=== PATIENT | female | born 1980 | race Caucasian/White ===

== ENCOUNTER 2017-01-03 06:43 | Day surgery (SDC) | payer BC ==
[~2017-01-03 06:43] MED LIST: Sodium Chloride 0.9% 10 ML Syringe FLUSH PRN; Sodium Chloride 0.9% 2.5 ML Syringe FLUSH PRN
[2017-01-03] MEDS ORDERED: Propofol 200 MG/20 ML SDV ONE (07:12)
[2017-01-03] MEDS ORDERED: Dexamethasone 4 MG/ML 5 ML MDV ONE (07:13)
[2017-01-03] MEDS ORDERED: Ketorolac 30 MG/ML SDV ONE (07:13)
[2017-01-03] MEDS ORDERED: Ondansetron 4 MG/2 ML SDV ONE (07:13)
[2017-01-03] MEDS ORDERED: fentaNYL 100 MCG/2 ML SDV ONE ×2 (07:13→07:23)
[2017-01-03] MEDS ORDERED: Midazolam 1 MG/ML 2 ML SDV ONE (07:13)
[2017-01-03] MEDS ORDERED: Lactated Ringers 1,000 ML IV SCH (07:15)
--- NOTE | 2017-01-03 07:27 | PCM.PREANE ---
Preanesthetic Assessment - Anesthesia/Transfusion/Family Hx Anesthesia History: Prior Anesthesia Without Reaction Family History of Anesthesia Reaction: No Transfusion History: No Prior Transfusion(s) - Review of Systems General: No Symptoms Pulmonary: No Symptoms Cardiovascular: No Symptoms Gastrointestinal: No Symptoms Neurological: No Symptoms Other: Reports: None - Physical Assessment NPO Status Date: 01/02/17 Height: 1.65 m Weight: 72.575 kg ASA Class: 1 Mental Status: Alert & Oriented x3 Airway Class: Mallampati = 1 Dentition: Reports: Normal Dentition ROM/Head Extension: Full Lungs: Clear to Auscultation, Normal Respiratory Effort Cardiovascular: Regular Rate, Regular Rhythm - Allergies Allergies/Adverse Reactions: Allergies Allergy/AdvReac Type Severity Reaction Status Date / Time No Known Allergies Allergy Verified 12/27/16 13:42 - Anesthesia Plan Pre-Op Medication Ordered: None - Acknowledgements Anesthesia Type Planned: General Anesthesia Pt an Appropriate Candidate for the Planned Anesthesia: Yes Alternatives and Risks of Anesthesia Discussed w Pt/Guardian: Yes Pt/Guardian Understands and Agrees with Anesthesia Plan: Yes PreAnesthesia Questionnaire Genitourinary History: Reports: None Psychiatric History: Reports: Anxiety - Past Surgical History Head Surgeries/Procedures: Reports: None HEENT Surgical History: Reports: Oral Surgery Other HEENT Surgeries/Procedures: wisdom teeth - SUBSTANCE USE Smoking Status *Q: Never Smoker Recreational Drug Use History: No - HOME MEDS Home Medications: Home Meds Escitalopram Oxalate [Lexapro] 20 mg PO DAILY 12/27/16 [History] - CURRENT (IN HOUSE) MEDS Current Meds: Current Medications Lactated Ringer's (Ringers, Lactated) 1,000 mls @ 100 mls/hr IV ASDIRECTED [place]UGUSTO Sodium Chloride (Saline Flush) 10 ml FLUSH ASDIRECTED PRN PRN Reason: Keep Vein Open Sodium Chloride (Saline Flush) 2.5 ml FLUSH ASDIRECTED PRN PRN Reason: Keep Vein Open Discontinued Medications Dexamethasone (Dexamethasone) Confirm Administered Dose 20 mg .ROUTE .STK-MED ONE Stop: 01/03/17 07:14 Fentanyl (Sublimaze) Confirm Administered Dose 100 mcg .ROUTE .STK-MED ONE Stop: 01/03/17 07:14 Fentanyl (Sublimaze) Confirm Administered Dose 100 mcg .ROUTE .STK-MED ONE Stop: 01/03/17 07:24 Ketorolac Tromethamine (Toradol) Confirm Administered Dose 30 mg .ROUTE .STK- MED ONE Stop: 01/03/17 07:14 Lidocaine HCl (Xylocaine-Mpf 1%) Confirm Administered Dose 5 ml .ROUTE .STK-MED ONE Stop: 01/03/17 07:14 Midazolam HCl (Versed 1 Mg/Ml) Confirm Administered Dose 2 mg .ROUTE .STK-MED ONE Stop: 01/03/17 07:14 Ondansetron HCl (Zofran) Confirm Administered Dose 4 mg .ROUTE .STK-MED ONE Stop: 01/03/17 07:14 Propofol (Diprivan 20 Ml) Confirm Administered Dose 200 mg .ROUTE .STK-MED ONE Stop: 01/03/17 07:13
--- NOTE | 2017-01-03 08:41 | PCM.OPNOTE ---
- General Post-Op/Procedure Note Date of Surgery/Procedure: 01/03/17 Operative Procedure(s): Diagnostic hysteroscopy/D&C/thermal endometrial ablation Findings: 8 cm uterine cavity, no intracavitary lesions Pre Op Diagnosis: menorrhagia Post-Op Diagnosis: Same Anesthesia Technique: General LMA Primary Surgeon: Lindsay Bruno Pathology: endometrial curretings. Fluid Replacement, Intraop: 900 (fluid deficit 240 mL NS) EBL in mLs: 10 Condition: Good Free Text/Narrative:: Dictation [id number]
[2017-01-03] MEDS: fentaNYL 100 MCG/2 ML SDV IVPUSH PRN ×2 (09:02→09:09)
--- NOTE | 2017-01-03 10:12 | PCM.POSTAN ---
POST ANESTHESIA ASSESSMENT - MENTAL STATUS Mental Status: Alert, Oriented - RESPIRATORY Respiratory Status: Respiratory Rate WNL, Airway Patent, O2 Saturation Stable - CARDIOVASCULAR CV Status: Pulse Rate WNL, Blood Pressure Stable - GASTROINTESTINAL GI Status: No Symptoms - POST OP HYDRATION Hydration Status: Adequate & Stable
--- NOTE | 2017-01-03 10:12 | PCM48HPAN ---
Post Anesthesia Note - EVALUATION WITHIN 48HRS OF ANESTHETIC Vital Signs in Normal Range: Yes Patient Participated in Evaluation: Yes Respiratory Function Stable: Yes Airway Patent: Yes Cardiovascular Function Stable: Yes Hydration Status Stable: Yes Pain Control Satisfactory: Yes Nausea and Vomiting Control Satisfactory: Yes Mental Status Recovered: Yes
[2017-01-03 12:13] VITALS: BP 111/73
--- NOTE | 2017-01-03 15:59 | OR ---
SURGEON: Lindsay Bruno M.D. DATE OF PROCEDURE: 01/03/2017 PREOPERATIVE DIAGNOSIS: Menorrhagia. POSTOPERATIVE DIAGNOSIS: Menorrhagia. PROCEDURE PERFORMED: Diagnostic hysteroscopy, D and C with thermal endometrial ablation. ANESTHESIA: General LMA. ESTIMATED BLOOD LOSS: 10 mL. FLUIDS: 900 mL crystalloid. Fluid deficit, 240 mL of normal saline from hysteroscopy. COMPLICATION: None. FINDINGS: 8 cm uterine cavity. No intracavitary lesions noted. DISPOSITION: The patient to PACU, stable. SPECIMENS: To pathology. INDICATION: Karon is a 36-year-old female who has had ongoing difficulties with menorrhagia. Endometrial biopsy is benign. She would like to proceed with a surgical intervention in the form of thermal endometrial ablation. Her has had a vasectomy for permanent control. Risks of the procedure have been discussed and proper consent obtained. DESCRIPTION OF PROCEDURE: The patient was taken to the operating room, where she underwent general LMA. She was placed in modified dorsal lithotomy position, was prepped and draped in the usual sterile fashion. SCDs to lower extremities. Bladder was drained. A time-out was performed. Speculum was introduced in the vagina. The cervix was grasped with an Allis clamp. Endocervix was gently dilated to 6 mm. The hysteroscope was now gently introduced using normal saline as distention media. I was able to visualize the uterine cavity. Left ostia followed by the right ostia was visualized. No intracavitary lesion was seen. The endometrium was fairly thick though. The hysteroscope was now removed. Gentle curettage of endometrium was performed. Specimens to pathology. The Shea device was now prepped according to supervisor chemical protocol. The cervix sounded to approximately 4 cm. Once this was set on the device, the device was introduced in the uterine cavity. At the level of the fundus, the balloon was gently opened. Endocervical balloon was insufflated and ablation process was initiated. A complete 120-second ablation process was completed. The arms of the balloon were now deflated followed by deflation of the endocervical balloon, and the device was removed from the uterine cavity. The cervix was inspected and found to be hemostatic except for one lesion along the 7 o'clock region of the cervix. This was cauterized with silver nitrate. Hemostasis was thereafter evident. Sponge and instrument counts were correct. All instruments were removed from the vagina. The patient tolerated the procedure well. She will go to PACU in stable condition. Specimens to pathology. BALJIT / NORTH /[id number]
== END 2017-01-03 10:15 | disposition home or self-care (01) ==
LOC: MW.SDS 06:43
PROVIDERS: ATTEND Obstetrics & Gynecology
DX: N92.0 Excessive and frequent menstruation with regular cycle (principal); F41.9 Anxiety disorder, unspecified; Z79.899 Other long term (current) drug therapy; Z98.890 Other specified postprocedural states
CPT/HCPCS: 58563; J1100; J1885; J2250; J2405; J3010; J7120; 00952; 88305; J2704

== ENCOUNTER 2017-08-14 10:07 | Day surgery (SDC) | payer BC ==
[2017-08-14] MEDS ORDERED: Sodium Chloride 0.9% 10 ML Syringe FLUSH PRN (10:32)
[2017-08-14] MEDS ORDERED: Sodium Chloride 0.9% 2.5 ML Syringe FLUSH PRN (10:32)
[2017-08-14] MEDS ORDERED: ceFAZolin 1 GM Vial IM ONE (10:32)
[2017-08-14] MEDS ORDERED: Lactated Ringers 1,000 ML IV SCH (10:45)
--- NOTE | 2017-08-14 10:54 | PCM.PREANE ---
Preanesthetic Assessment - Anesthesia/Transfusion/Family Hx Anesthesia History: Prior Anesthesia Without Reaction Family History of Anesthesia Reaction: No Transfusion History: No Prior Transfusion(s) Intubation History: Unknown - Review of Systems General: No Symptoms Pulmonary: No Symptoms Cardiovascular: No Symptoms Gastrointestinal: Abdominal Pain Neurological: No Symptoms Other: Reports: None - Physical Assessment O2 Sat by Pulse Oximetry: 100 Respiratory Rate: 16 Vital Signs: Last Vital Signs Temp 36.9 C 08/14/17 10:41 Pulse 59 L 08/14/17 10:41 Resp 16 08/14/17 10:41 BP 113/64 08/14/17 10:41 Pulse Ox 100 08/14/17 10:41 Height: 1.66 m Weight: 79.379 kg ASA Class: 2 Mental Status: Alert & Oriented x3 Airway Class: Mallampati = 2 Dentition: Reports: Normal Dentition Thyro-Mental Finger Breadths: 3 Mouth Opening Finger Breadths: 2 ROM/Head Extension: Full Lungs: Clear to Auscultation, Normal Respiratory Effort Cardiovascular: Regular Rate, Regular Rhythm - Allergies Allergies/Adverse Reactions: Allergies Allergy/AdvReac Type Severity Reaction Status Date / Time No Known Allergies Allergy Verified 08/11/17 10:29 - Blood Blood Available: No - Anesthesia Plan Pre-Op Medication Ordered: None - Acknowledgements Anesthesia Type Planned: General Anesthesia Pt an Appropriate Candidate for the Planned Anesthesia: Yes Alternatives and Risks of Anesthesia Discussed w Pt/Guardian: Yes Pt/Guardian Understands and Agrees with Anesthesia Plan: Yes PreAnesthesia Questionnaire Other HEENT History: wears glasses Genitourinary History: Reports: None Psychiatric History: Reports: Depression - Past Surgical History Head Surgeries/Procedures: Reports: None Female Surgical History: Reports: Breast Implant, D&C, Endometrial Ablation - SUBSTANCE USE Smoking Status *Q: Never Smoker Recreational Drug Use History: No - HOME MEDS Home Medications: Home Meds Escitalopram Oxalate [Lexapro] 20 mg PO DAILY 12/27/16 [History] Acetaminophen [Tylenol] 1,000 mg PO Q6H PRN 08/11/17 [History] Ibuprofen 600 mg PO Q4H PRN 08/11/17 [History] Mometasone Furoate [Elocon 0.1% Crm] 1 dose TOP DAILY PRN 08/11/17 [History] - CURRENT (IN HOUSE) MEDS Current Meds: Current Medications Lactated Ringer's (Ringers, Lactated) 1,000 mls @ 125 mls/hr IV ASDIRECTED [place]UGUSTO Sodium Chloride (Saline Flush) 10 ml FLUSH ASDIRECTED PRN PRN Reason: Keep Vein Open Sodium Chloride (Saline Flush) 2.5 ml FLUSH ASDIRECTED PRN PRN Reason: Keep Vein Open Discontinued Medications Cefazolin Sodium (Ancef) 1 gm IM ONETIME ONE Stop: 08/14/17 10:33
[2017-08-14] MEDS ORDERED: Bupivacaine 0.25% 10 ML SDV ONE (11:10)
[2017-08-14] MEDS ORDERED: fentaNYL 100 MCG/2 ML SDV ONE ×2 (11:13→12:15)
[2017-08-14] MEDS ORDERED: Propofol 200 MG/20 ML SDV ONE (11:13)
[2017-08-14] MEDS ORDERED: Glycopyrrolate 0.2 MG/ML SDV ONE ×2 (11:13→11:17)
[2017-08-14] MEDS ORDERED: Ondansetron 4 MG/2 ML SDV ONE (11:13)
[2017-08-14] MEDS ORDERED: Midazolam 1 MG/ML 2 ML SDV ONE (11:13)
[2017-08-14] MEDS ORDERED: Ketorolac 30 MG/ML SDV ONE (11:13)
[2017-08-14] MEDS ORDERED: Neostigmine Methylsulfate 1 MG/ML 5 ML Syringe ONE (11:17)
[2017-08-14] MEDS ORDERED: Rocuronium 10 MG/ML 10 ML Syringe ONE (11:17)
[2017-08-14] MEDS ORDERED: Lidocaine 2% 5 ML SDV ONE (11:17)
[2017-08-14] MEDS ORDERED: ceFAZolin 1 GM Vial ONE (11:53)
--- NOTE | 2017-08-14 12:58 | PCM.OPNOTE ---
<Cheryl Rivas - Last Filed: 08/14/17 12:53> - General Post-Op/Procedure Note Date of Surgery/Procedure: 08/14/17 Operative Procedure(s): Hysteroscopy with abdominal laparoscopy Findings: Expected uterine scarring s/p ablation. Normal bowel, normal ovaries, posterior cul-de-sac peritoneal right-sided blind pouch. Pre Op Diagnosis: Right-sided pelvic pain Post-Op Diagnosis: same Anesthesia Technique: General ET Tube Primary Surgeon: Lindsay Bruno Pulverizer Operator: Cheryl Rivas Fluid Replacement, Intraop: 600 Output, Urine Amount: 60 EBL in mLs: 10 Condition: Stable <Lindsay Bruno - Last Filed: 08/14/17 13:08> - General Post-Op/Procedure Note Operative Procedure(s): Operative laparoscopy with lysis of adhesion. Diagnostic hysteroscopy Complications: none known Free Text/Narrative:: Intake & Output 08/13/17 08/14/17 08/14/17 22:59 06:59 14:59 Intake Total 600 Output Total 60 Balance 540 Dictation [id number]
[2017-08-14] MEDS: fentaNYL 100 MCG/2 ML SDV IVPUSH PRN ×3 (13:03→13:35)
--- NOTE | 2017-08-14 14:28 | PCM48HPAN ---
Post Anesthesia Note - EVALUATION WITHIN 48HRS OF ANESTHETIC Vital Signs in Normal Range: Yes Patient Participated in Evaluation: Yes Respiratory Function Stable: Yes Airway Patent: Yes Cardiovascular Function Stable: Yes Hydration Status Stable: Yes Pain Control Satisfactory: Yes Nausea and Vomiting Control Satisfactory: Yes Mental Status Recovered: Yes Resp Rate: 11 - COMMENTS/OBSERVATIONS Free Text/Narrative:: no anesthesia problems
[2017-08-14 15:20] VITALS: BP 108/58
--- NOTE | 2017-08-16 11:17 | OR ---
SURGEON: Lindsay Bruno M.D. DATE OF PROCEDURE: 08/14/2017 PREOPERATIVE DIAGNOSIS: Right lower quadrant pelvic pain. POSTOPERATIVE DIAGNOSIS: Right lower quadrant pelvic pain. PROCEDURES: 1. Operative laparoscopy, lysis of adhesion. 2. Diagnostic hysteroscopy. FISH CUTTER: Efe Rivas MS4. ANESTHESIA: General endotracheal anesthesia. FLUIDS: 600 mL crystalloid. ESTIMATED BLOOD LOSS: Approximately 10 mL. COMPLICATIONS: None. FINDINGS: Overall normal-appearing pelvis, mobile uterus. Tubes and ovaries appear normal. Anterior cul-de-sac is smooth. Posterior cul-de-sac does have a right- sided blind peritoneal pouch. It has a different appearance than a Masters- Nicholas typical window. Photographs taken and pouch is lysed in order to not allow potential entrapment of bowel or tube or ovary. Hysteroscopy, normal- appearing post ablated endometrium. Tubes were cannulated with hysteroscopic grasper. DISPOSITION: The patient to PACU stable. INDICATION FOR PROCEDURE: Karon is a 37-year-old female, who has had ongoing difficulties since May with intermittent right lower quadrant pain, but now, over the last 2 weeks, it has been increasingly severe and persistent. Imaging study has no significant findings. Therefore, felt reasonable to proceed with further evaluation with laparoscopy and hysteroscopy. The patient had a thermal endometrial ablation this last fall and has done very well with this procedure. Risks of procedure were discussed. Proper consent obtained. DESCRIPTION OF PROCEDURE: The patient was taken to the operating room, where she underwent general endotracheal anesthesia, placed in modified dorsolithotomy position, and prepped and draped in the usual sterile fashion. SCDs to lower extremities. Bladder was drained. Received Ancef prophylactically. Time-out was performed. Speculum was introduced into vagina. Anterior lip of cervix was grasped with an Allis clamp. Cervix gently dilated to 3 mm and a HUMI uterine manipulator was gently introduced. Balloon was insufflated. Instruments and the manipulator were removed from the vagina, gloves changed, and attention turned abdominally. Infraumbilically, the skin and subcutaneous tissue were prepped with 0.25% Marcaine. Please see nurse's notes for total amount of local dispensed during the procedure. A midline sagittal 5 mm skin incision was created. Anterior abdominal wall tented upward and a Veress needle introduced. Saline hanging drop test was performed, pneumoperitoneum was achieved. The Veress needle was removed. A 5 mm trocar was introduced with laparoscope. Peritoneal contents were identified. On initial inspection, the uterus is mobile. Tubes and ovaries appeared normal. Anterior cul-de-sac is smooth. Liver edge is smooth. No acute inflammation of the bowel. The appendix is visualized, appears normal. Posterior cul-de-sac is overall smooth with area of a right-sided blind pouch in peritoneal region noted. Left lower quadrant trocar is placed under direct visualization, after prepping this region with 0.25% Marcaine creating 5 mm skin incision. After trocars introduced and graspers introduced in order to further delineate this blind-sided pouch, it does not communicate beyond the right lower pelvis. It appears to be near the right uterosacral ligament. Using LigaSure, the posterior edge of it is now lysed and opened in order to minimize any ability for potential bowel slippage into the region. There was none found at the time of the initial visualization, but in case this is a possibility for the pain. The pelvis was now copiously irrigated and suction dried. No other findings were noted. Photographs were taken of the above. The left lower quadrant trocars were now removed under direct visualization. Pneumoperitoneum was released. The laparoscope was removed followed by infraumbilical trocar. The skin edges were reapproximated using 3-0 Monocryl in a subcuticular fashion. Attention was now turned to performing the hysteroscopy. A speculum was introduced in the vagina. The anterior lip of cervix was grasped with an Allis clamp. The 5 mm hysteroscope was gently introduced. Using normal saline as distention media, I was able to initially flush out any blood clots that were there from the uterine manipulator. The endometrium has no lesions or thickening noted, has a typical post ablative appearance. The tube ostia on either side were cannulated with a hysteroscopic grasper easily. The hysteroscope was now removed. Fluid deficit was approximately 90 mL of normal saline. All instruments were removed from the vagina. Hemostasis appears evident. Sponge, instrument, and needle counts correct x2. The patient has tolerated the procedure well overall. She will go to PACU in stable condition. BALJIT / NORTH /[id number]
== END 2017-08-14 14:15 | disposition home or self-care (01) ==
LOC: MW.SDS 10:07
PROVIDERS: ATTEND Obstetrics & Gynecology
DX: R10.31 Right lower quadrant pain (principal); R10.2 Pelvic and perineal pain; Z79.899 Other long term (current) drug therapy
CPT/HCPCS: 36415; 49329; 58555; 84703; 85027; J0690; J1885; J2250; J2405; J3010; J7120; 00840; J2704

== ENCOUNTER 2017-09-05 08:09 | Day surgery (SDC) | payer BC ==
[~2017-09-05 08:09] MED LIST changes: +Lactated Ringers 1,000 ML IV SCH; +Lidocaine 2% 5 ML SDV ONE; +Midazolam 1 MG/ML 2 ML SDV ONE; +Propofol 200 MG/20 ML SDV ONE; -Sodium Chloride 0.9% 10 ML Syringe FLUSH PRN; -Sodium Chloride 0.9% 2.5 ML Syringe FLUSH PRN; +fentaNYL 100 MCG/2 ML SDV ONE
[2017-09-05] MEDS ORDERED: Sodium Chloride 0.9% 10 ML Syringe FLUSH PRN ×2 (08:48)
[2017-09-05] MEDS ORDERED: Sodium Chloride 0.9% 2.5 ML Syringe FLUSH PRN ×2 (08:48)
--- NOTE | 2017-09-05 08:51 | PCM.PREANE ---
Preanesthetic Assessment - Anesthesia/Transfusion/Family Hx Anesthesia History: Prior Anesthesia Without Reaction Family History of Anesthesia Reaction: No Transfusion History: No Prior Transfusion(s) Intubation History: Unknown - Review of Systems General: No Symptoms Pulmonary: No Symptoms Cardiovascular: No Symptoms Gastrointestinal: Abdominal Pain, Constipation Neurological: No Symptoms Other: Reports: None - Physical Assessment O2 Sat by Pulse Oximetry: 99 Respiratory Rate: 16 Vital Signs: Last Vital Signs Temp 36.4 C 09/05/17 08:32 Pulse 56 L 09/05/17 08:32 Resp 16 09/05/17 08:32 BP 128/70 09/05/17 08:32 Pulse Ox 99 09/05/17 08:32 Height: 1.65 m Weight: 78.925 kg ASA Class: 2 Mental Status: Alert & Oriented x3 Airway Class: Mallampati = 2 Dentition: Reports: Normal Dentition Thyro-Mental Finger Breadths: 3 Mouth Opening Finger Breadths: 3 ROM/Head Extension: Full Lungs: Clear to Auscultation, Normal Respiratory Effort Cardiovascular: Regular Rate, Regular Rhythm - Lab Values: Laboratory Last Values Urine HCG, Qual NEGATIVE (NEGATIVE) 09/05/17 08:22 - Allergies Allergies/Adverse Reactions: Allergies Allergy/AdvReac Type Severity Reaction Status Date / Time No Known Allergies Allergy Verified 08/30/17 13:19 - Blood Blood Available: No - Anesthesia Plan Pre-Op Medication Ordered: None - Acknowledgements Anesthesia Type Planned: MAC Pt an Appropriate Candidate for the Planned Anesthesia: Yes Alternatives and Risks of Anesthesia Discussed w Pt/Guardian: Yes Pt/Guardian Understands and Agrees with Anesthesia Plan: Yes PreAnesthesia Questionnaire HEENT History: Reports: None Gastrointestinal History: Reports: Other (See Below) Other Gastrointestinal History: RLQ pain Genitourinary History: Reports: None 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: Psychiatric History: Reports: Depression - Past Surgical History Head Surgeries/Procedures: Reports: None HEENT Surgical History: Reports: Oral Surgery Other HEENT Surgeries/Procedures: wisdom teeth Female Surgical History: Reports: Breast Implant, D&C, Endometrial Ablation Other Female Surgeries/Procedures: hysteroscopy with endometrial ablation, exploratory laparoscopy - SUBSTANCE USE Smoking Status *Q: Never Smoker Recreational Drug Use History: No - HOME MEDS Home Medications: Home Meds Escitalopram Oxalate [Lexapro] 20 mg PO DAILY 12/27/16 [History] Ketorolac [Toradol] 60 mg PO ASDIRECTED PRN 08/30/17 [History] - CURRENT (IN HOUSE) MEDS Current Meds: Current Medications Lactated Ringer's (Ringers, Lactated) 1,000 mls @ 100 mls/hr IV ASDIRECTED AUGUSTO Last Admin: 09/05/17 08:33 Dose: 100 mls/hr Lactated Ringer's (Ringers, Lactated) 1,000 mls @ 125 mls/hr IV ASDIRECTED [place] Sodium Chloride (Saline Flush) 10 ml FLUSH ASDIRECTED PRN PRN Reason: Keep Vein Open Sodium Chloride (Saline Flush) 2.5 ml FLUSH ASDIRECTED PRN PRN Reason: Keep Vein Open Sodium Chloride (Saline Flush) 10 ml FLUSH ASDIRECTED PRN PRN Reason: Keep Vein Open Sodium Chloride (Saline Flush) 2.5 ml FLUSH ASDIRECTED PRN PRN Reason: Keep Vein Open Discontinued Medications Fentanyl (Sublimaze) Confirm Administered Dose 100 mcg .ROUTE .STK-MED ONE Stop: 09/05/17 07:20 Lidocaine (Xylocaine-Mpf 2%) Confirm Administered Dose 5 ml .ROUTE .STK-MED ONE Stop: 09/05/17 07:20 Midazolam HCl (Versed 1 Mg/Ml) Confirm Administered Dose 2 mg .ROUTE .STK-MED ONE Stop: 09/05/17 07:20 Propofol (Diprivan 20 Ml) Confirm Administered Dose 400 mg .ROUTE .STK-MED ONE Stop: 09/05/17 07:20
[2017-09-05] MEDS ORDERED: Lactated Ringers 1,000 ML IV SCH (09:00)
--- NOTE | 2017-09-05 09:45 | PCM.OPNOTE ---
- General Post-Op/Procedure Note Date of Surgery/Procedure: 09/05/17 Operative Procedure(s): Diagnostic colonoscopy Findings: Sigmoid colon polyp Pre Op Diagnosis: Change in bowel habits Post-Op Diagnosis: IBS, sigmoid colon polyp [place]est[place] [facility] [place] Surgeon: Kristen Zapata Condition: Good
--- NOTE | 2017-09-05 10:22 | OR ---
SURGEON: BEN MIDDLETON MD DATE OF PROCEDURE: 09/05/2017 PREOPERATIVE DIAGNOSIS: Change in bowel habits. POSTOPERATIVE DIAGNOSES: Irritable bowel syndrome and sigmoid colon polyp. PROCEDURE PERFORMED: Diagnostic colonoscopy. ANESTHESIA: MAC. INSTRUMENT USED: Olympus colonoscope. EXTENT OF THE EXAMINATION: To the cecum. PREPARATION: Good. LIMITATIONS: None. INDICATIONS FOR EXAMINATION: The patient is a 37-year-old female who presents with abdominal pain, as well as chronic constipation alternating with diarrhea. A decision was made to perform a diagnostic colonoscopy. We discussed the procedure, expected perioperative course, and risks including bleeding, infection, or damage to surrounding structures including perforation. The patient verbalized understanding and wishes to proceed. PROCEDURE IN DETAIL: The patient was brought in to the endoscopy suite and placed in the left lateral decubitus position. A time-out was completed verifying the patient's name, age, date of , allergies, and procedure to be performed. A monitored anesthesia care was induced, and continuous oxygen was provided via nasal cannula throughout the procedure. After adequate sedation was achieved, a digital rectal exam was performed. This exam was within normal limits. A well- lubricated colonoscope was inserted into the rectum and advanced under direct visualization to the level of the cecum. The cecum was identified by both visual and anatomic landmarks. A photograph was taken of the cecal cap. I attempted to retroflex the scope within the cecum. However, due to looping of the scope more proximally, I was unable to complete this. I was able to closely inspect the terminal ileum, and it appeared normal with no evidence of inflammation. The scope was then fully withdrawn while examining the color, texture, anatomy, and integrity of the mucosa from the cecum to the anal canal. In the proximal sigmoid colon, a 1 to 2 mm sessile polyp was noted. This was removed using a cold biopsy forceps and sent to pathology. The remainder of the colonic mucosa appeared normal. The scope was then brought into the rectum and retroflexed to allow visualization of the anal canal opening. This appeared normal, and a photograph was taken. The scope was then straightened out and fully withdrawn. The [id number] time was 8 minutes. The patient tolerated the procedure well and was taken to PACU in stable condition. ENDOSCOPIC DIAGNOSES: 1. Irritable bowel syndrome. 2. Sigmoid colon polyp. RECOMMENDATIONS: Follow up in clinic in 2 weeks. SREEKANTH KAT /[id number] EMILIANO
[2017-09-05 12:11] VITALS: BP 114/74
== END 2017-09-05 10:30 | disposition home or self-care (01) ==
LOC: MW.SDS 08:09
PROVIDERS: ATTEND Surgery
DX: K58.2 Mixed irritable bowel syndrome (principal); K63.5 Polyp of colon; Z79.899 Other long term (current) drug therapy; Z90.710 Acquired absence of both cervix and uterus; Z98.890 Other specified postprocedural states
CPT/HCPCS: 45378; 81025; 88305; J2250; J3010; J7120; J2704

== ENCOUNTER 2017-11-02 11:08 | Day surgery (SDC) | payer BC ==
[2017-11-02] MEDS ORDERED: Betamethasone Acetate/Betamethasone Sod Phosphate 30 MG/5 ML MDV ONE (12:52)
[2017-11-02] MEDS ORDERED: Ropivacaine 0.5% 5 MG/ML 30 ML SDV ONE (12:52)
[2017-11-02] MEDS ORDERED: Lidocaine 2% 5 ML SDV ONE (12:52)
[2017-11-02] MEDS ORDERED: Iopamidol 408 MG/ML 50 ML SDV ONE (12:52)
--- NOTE | 2017-11-02 16:40 | OR ---
SURGEON: Shruthi Daniel D.O. DATE OF PROCEDURE: 11/02/2017 OR STAFF PRESENT: 1. Michelle Wade RN. 2. Michelle Clark RN. 3. RT Florinda. WOUND CLASSIFICATION: I. PREOPERATIVE DIAGNOSES: 1. Perineum pain female. 2. 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 3. Chronic pain syndrome, pelvic pain. POSTOPERATIVE DIAGNOSES: 1. Perineum pain female. 2. 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 3. Chronic pain syndrome, pelvic pain. PROCEDURES PERFORMED: 1. Caudal epidural steroid injection. 2. Fluoroscopic guidance for needle placement. 3. Local with oral valium for sedation. SCREENING QUESTIONS: The patient answered "no" to all of the following questions: 1. Are you allergic to latex? 2. Do you have a bleeding disorder? 3. Do you have any current local or systemic infections? 4. Are you taking any anti-inflammatories or blood thinners? 5. Do you have any joint replacements, heart valve replacements, or a pacemaker? DESCRIPTION OF PROCEDURE: The patient had the procedure thoroughly explained including all possible risks, benefits and alternatives. Consent was signed in my clinic indicating understanding and willingness to proceed. The patient presented to [facility] and was escorted to the dressing room to disrobe and change into a hospital gown. Preoperative vital signs were taken and stable. The patient reported that Valium was taken prior to the procedure. The patient was brought back to the procedure room and placed in the prone position on the procedure room table. A pillow was placed under the hips in order to flatten the lumbar lordosis. The back was prepped with ChloraPrep and sterilely draped. All personnel in the operating room were dressed in appropriate attire including surgical scrubs, head and shoe covers. This was to ensure sterility while in the treatment room. During the time fluoroscopy was in use, all personnel in the operating room wore lead taylor with thyroid collars. Sterile technique was used throughout the procedure. The patient was awake and conversant throughout the procedure. There was no evidence of infection at the site of needle insertion. Skeletal landmarks were identified under fluoroscopy for the lumbar epidural. Skin was anesthetized with 2% lidocaine with a sterile 27-gauge 1.5 inch needle. Then, a 20-gauge Tuohy epidural needle was placed in the epidural space with loss of resistance technique under fluoroscopic guidance. No heme, cerebrospinal fluid, or paresthesias were noted. Isovue-200 contrast dye was injected in 0.2 cubic centimeter increments and seen to outline the epidural space in both AP and lateral views. There was no intravascular flow pattern observed under live fluoroscopy. Then, 12 milligrams of Celestone was slowly injected after negative aspiration. The patient tolerated the procedure well. Vital signs were stable during and after the procedure. The staff escorted the patient to the recovery area and the patient was released in stable condition after a brief stay in the recovery room monitored by the nurse. The patient was given both oral and written discharge and follow up instructions with recommendation to follow up given for 2-3 weeks. The patient voiced understanding including understanding of those signs and symptoms that would require emergency care. The patient knows how to contact the office if there are any additional problems or questions in the meantime. PREOPERATIVE PAIN: 9/10 POSTOPERATIVE PAIN: 0/10 FOLLOWUP: Follow up in the Pain Clinic in 3 weeks. CHONG / NORTH /[id number]
== END 2017-11-02 13:20 | disposition home or self-care (01) ==
LOC: MW.SDS 11:08
PROVIDERS: ATTEND Anesthesiology
DX: G89.4 Chronic pain syndrome (principal); R10.2 Pelvic and perineal pain; G57.90 Unspecified mononeuropathy of unspecified lower limb; K58.9 Irritable bowel syndrome, unspecified
CPT/HCPCS: 62323; J0702; J2795; Q9966

== ENCOUNTER 2017-11-14 10:49 | Day surgery (SDC) | payer BC ==
[~2017-11-14 10:49] MED LIST changes: +Betamethasone Acetate/Betamethasone Sod Phosphate 30 MG/5 ML MDV ONE; +Iopamidol 408 MG/ML 50 ML SDV ONE; -Lactated Ringers 1,000 ML IV SCH; -Midazolam 1 MG/ML 2 ML SDV ONE; -Propofol 200 MG/20 ML SDV ONE; +Ropivacaine 0.5% 5 MG/ML 30 ML SDV ONE; -fentaNYL 100 MCG/2 ML SDV ONE
--- NOTE | 2017-11-14 16:34 | OR ---
SURGEON: Shruthi Daniel D.O. DATE OF PROCEDURE: 11/14/2017 PREOPERATIVE DIAGNOSES: 1. Chronic neuropathic pain. 2. Pelvic pain. 3. Neuropathic perineum pain, female. POSTOPERATIVE DIAGNOSES: 1. Chronic neuropathic pain. 2. Pelvic pain. 3. Neuropathic perineum pain, female. PROCEDURES PERFORMED: 1. Caudal epidural steroid injection. 2. Fluoroscopic guidance for needle placement. 3. Local with oral valium for sedation. SCREENING QUESTIONS: The patient answered "no" to all of the following questions: 1. Are you allergic to latex? 2. Do you have a bleeding disorder? 3. Do you have any current local or systemic infections? 4. Are you taking any anti-inflammatories or blood thinners? 5. Do you have any joint replacements, heart valve replacements, or a pacemaker? DESCRIPTION OF PROCEDURE: The patient had the procedure thoroughly explained including all possible risks, benefits and alternatives. Consent was signed in my clinic indicating understanding and willingness to proceed. The patient presented to [facility] [place] and was escorted to the dressing room to disrobe and change into a hospital gown. Preoperative vital signs were taken and stable. The patient reported that Valium was taken prior to the procedure. The patient was brought back to the procedure room and placed in the prone position on the procedure room table. A pillow was placed under the hips in order to flatten the lumbar lordosis. The back was prepped with ChloraPrep and sterilely draped. All personnel in the operating room were dressed in appropriate attire including surgical scrubs, head and shoe covers. This was to ensure sterility while in the treatment room. During the time fluoroscopy was in use, all personnel in the operating room wore lead taylor with thyroid collars. Sterile technique was used throughout the procedure. The patient was awake and conversant throughout the procedure. There was no evidence of infection at the site of needle insertion. Skeletal landmarks were identified under fluoroscopy for the caudal epidural. Skin was anesthetized with 2% lidocaine with a sterile 27-gauge 1.5 inch needle. Then a 20-gauge Tuohy epidural needle was placed in the epidural space with loss of resistance technique under fluoroscopic guidance. No heme, cerebrospinal fluid, or paresthesias were noted. Isovue-200 contrast dye was injected in 0.2 cubic centimeter increments and seen to outline the epidural space in both AP and lateral views. There was no intravascular flow pattern observed under live fluoroscopy. Then 12 milligrams of Celestone was slowly injected after negative aspiration. The patient tolerated the procedure well. Vital signs were stable during and after the procedure. The staff escorted the patient to the recovery area and the patient was released in stable condition after a brief stay in the recovery room monitored by the nurse. The patient was given both oral and written discharge and follow up instructions with recommendation to follow up given for 2-3 weeks. The patient voiced understanding including understanding of those signs and symptoms that would require emergency care. The patient knows how to contact the office if there are any additional problems or questions in the meantime. PREOPERATIVE PAIN: 5/10. POSTOPERATIVE PAIN: 0/10. FOLLOWUP: In pain clinic in 3 weeks. CHONG KAT /[id number] EMILIANO
== END 2017-11-14 12:48 ==
LOC: MW.SDS 10:49
PROVIDERS: ATTEND Anesthesiology
DX: G89.29 Other chronic pain (principal); R10.2 Pelvic and perineal pain; Z79.899 Other long term (current) drug therapy
CPT/HCPCS: 62323; J0702; J2795; Q9966

== ENCOUNTER 2018-01-16 10:56 | Day surgery (SDC) | payer BC ==
[2018-01-16] MEDS ORDERED: Lidocaine 2% 5 ML SDV ONE (12:07)
[2018-01-16] MEDS ORDERED: Ropivacaine 0.5% 5 MG/ML 30 ML SDV ONE (12:07)
[2018-01-16] MEDS ORDERED: Betamethasone Acetate/Betamethasone Sod Phosphate 30 MG/5 ML MDV ONE (12:07)
[2018-01-16] MEDS ORDERED: Lidocaine 1% 0 ML ONE (12:07)
[2018-01-16] MEDS ORDERED: Iopamidol 408 MG/ML 50 ML SDV ONE (12:08)
--- NOTE | 2018-01-16 22:04 | OR ---
SURGEON: Shruthi Daniel D.O. DATE OF PROCEDURE: 01/16/2018 OR STAFF PRESENT: 1. Michelle Wade RN. 2. Sana Benites RN. 3. Charlotte Love. 4. RT Andres. WOUND CLASSIFICATION: I. PREOPERATIVE DIAGNOSES: 1. Female neuropathic perineum pain. 2. Lumbar L5-S1 degenerative disk disease. 3. Chronic pelvic pain. POSTOPERATIVE DIAGNOSES: 1. Female neuropathic perineum pain. 2. Lumbar L5-S1 degenerative disk disease. 3. Chronic pelvic pain. PROCEDURES PERFORMED: 1. Right S1 transforaminal epidural steroid injection. 2. Fluoroscopic guidance for needle placement. 3. Local with oral Valium for sedation. SCREENING QUESTIONS: The patient answered "no" to all of the following questions: 1. Are you allergic to iodine, Betadine or latex? 2. Do you have a bleeding disorder? 3. Do you have any joint replacements, heart valve replacements, or a pacemaker? 4. Are you allergic to anti-inflammatories or blood thinners? 5. Do you have any current local or systemic infections? MEDICAL NECESSITY: This is a patient with a history of chronic low back pain and lower extremity radicular pain in the above dermatomal pattern that comes in for the above diagnostic and therapeutic procedure. Pertinent positives and negatives for this suspected disease process along with the diagnostic findings and testing are in the patient's history and physical exam. The most salient feature includes radicular pain in the above dermatomal pattern. The patient had failed attempts at conservative therapy including physical therapy, nonsteroidal anti- inflammatory drugs, and other medications. No contraindications to perform this procedure including medical, no bleeding disorders or infections, no psychological, no antisocial personality disorder or active addiction disorder. There are no work-related issues, and, in general, the patient does not have any history of multiple prior interventions, surgeries or nerve blocks which have failed to return the patient to function. The patient's other symptoms to be treated include numbness, paresthesia, dysesthesia or hypoesthesia referred into the left lower extremity or any weakness in the involved myotome. This procedure is being performed in accordance with national guidelines as written by the [employer] (JACQUELINE). DESCRIPTION OF PROCEDURE: The patient had the procedure thoroughly explained including risks, benefits and alternatives. Consent was signed in my clinic indicating understanding and willingness to proceed. The patient presented to [facility] [place] where the patient was escorted to the dressing room to disrobe and change into a hospital gown. Preoperative vital signs were taken and stable. The patient reported that Valium was taken prior to the procedure. The patient was brought to the procedure room and placed in the prone position on the table. A pillow was placed under the abdomen in order to flatten the lumbar lordosis. The back was prepped with ChloraPrep and sterilely draped. All personnel in the operating room were dressed in appropriate attire including surgical scrubs, head and shoe covers. This was to ensure sterility while in the treatment room. During the time fluoroscopy was in use, all personnel in the operating room wore lead taylor with thyroid collars. Sterile technique was used during the procedure. The fluoroscope was placed for the lumbar transforaminal epidural steroid injection. There was no sign of infection at the skin site for needle insertion. The skin was anesthetized with 2% lidocaine with a 27 gauge 1-1/2 inch needle. Then a 22 gauge 3-1/2 inch spinal needle, advanced to the foramen. Under direct fluoroscopic guidance needle position was verified in three views; AP, oblique and lateral, with 0.2 cubic centimeters increments of Isovue-200 dye. No intravascular flow pattern was observed under live fluoroscopy. A total of 12 milligrams of Celestone was slowly injected after negative aspiration of heme, cerebrospinal fluid and no paresthesias were noted. The needle was cleared prior to removal from the skin. No adverse reactions were noted. The patient was brought to the recovery room awake and in good condition by my staff. The patient was monitored and discharge instructions were given after a brief stay in the recovery area. Both oral and written discharge and follow up instructions were given. The patient will follow up in the clinic in 3-4 weeks post procedure to evaluate the efficacy. The patient verbalized understanding including understanding of those signs and symptoms that would require emergency care and knows how to contact the office if there are any problems or questions in the meantime. PREOPERATIVE PAIN: 5/10. POSTOPERATIVE PAIN: 5/10. FOLLOWUP: Follow up in the Pain Clinic in 3 weeks. HOGLCHR / DONNAL /[id number]
== END 2018-01-16 13:10 ==
LOC: MW.SDS 10:56
PROVIDERS: ATTEND Anesthesiology
DX: G89.29 Other chronic pain (principal); R10.2 Pelvic and perineal pain; G57.91 Unspecified mononeuropathy of right lower limb; M51.37 Other intervertebral disc degeneration, lumbosacral region; Z79.899 Other long term (current) drug therapy
CPT/HCPCS: 64483; J0702; J2795; Q9966

== ENCOUNTER 2019-03-19 07:35 | Day surgery (SDC) | payer BC ==
[~2019-03-19 07:35] MED LIST changes: -Betamethasone Acetate/Betamethasone Sod Phosphate 30 MG/5 ML MDV ONE; +Bupivacaine 0.25% 10 ML SDV ONE; -Iopamidol 408 MG/ML 50 ML SDV ONE; -Lidocaine 2% 5 ML SDV ONE; +Methylene Blue 50 MG/10 ML Ampule ONE; -Ropivacaine 0.5% 5 MG/ML 30 ML SDV ONE; +Sodium Chloride 0.9% 10 ML SDV IV PRN; +Sodium Chloride 0.9% 10 ML Syringe FLUSH PRN; +Sodium Chloride 0.9% 2.5 ML Syringe FLUSH PRN; +ceFAZolin 1 GM in Premix Bag 1 BAG IV ONE
[2019-03-19] MEDS ORDERED: Fluorescein 5 ML Vial ONE (07:45)
[2019-03-19 08:22] LABS: BLOOD UREA NITROGEN,BUN 8 mg/dL (7.0-18.0); CHLORIDE,CL 103 mmol/L (98-107); GLUCOSE RANDOM 93 mg/dL (74-106); POTASSIUM,K 4.5 mmol/L (3.5-5.1); SODIUM,NA 141 mmol/L (136-145)
[2019-03-19] MEDS ORDERED: Scopolamine 1.5 MG Transdermal Patch ONE (08:27)
[2019-03-19] MEDS: Lactated Ringers 1,000 ML IV SCH ×2 (08:33→18:06)
--- NOTE | 2019-03-19 08:43 | PCM.PREANE ---
Preanesthetic Assessment - Anesthesia/Transfusion/Family Hx Anesthesia History: Prior Anesthesia Without Reaction Family History of Anesthesia Reaction: No Transfusion History: No Prior Transfusion(s) Intubation History: Unknown - Review of Systems General: No Symptoms Pulmonary: No Symptoms Cardiovascular: No Symptoms Gastrointestinal: No Symptoms Neurological: No Symptoms Other: Reports: None - Physical Assessment Height: 5 ft 5.5 in Weight: 78.471 kg ASA Class: 2 Mental Status: Alert & Oriented x3 Airway Class: Mallampati = 2 Dentition: Reports: Normal Dentition Thyro-Mental Finger Breadths: 3 Mouth Opening Finger Breadths: 2 ROM/Head Extension: Full Lungs: Clear to Auscultation, Normal Respiratory Effort Cardiovascular: Regular Rate, Regular Rhythm - Lab Values: Laboratory Last Values WBC 5.24 K/uL (4.0-11.0) 03/19/19 07:49 RBC 4.80 M/uL (4.30-5.90) 03/19/19 07:49 Hgb 14.3 g/dL (12.0-16.0) 03/19/19 07:49 Hct 43.5 % (36.0-46.0) 03/19/19 07:49 MCV 90.6 fL (80.0-98.0) 03/19/19 07:49 MCH 29.8 pg (27.0-32.0) 03/19/19 07:49 MCHC 32.9 g/dL (31.0-37.0) 03/19/19 07:49 RDW Std Deviation 41.6 fl (28.0-62.0) 03/19/19 07:49 RDW Coeff of Kelley 13 % (11.0-15.0) 03/19/19 07:49 Plt Count 181 K/uL (150-400) 03/19/19 07:49 MPV 10.10 fL (7.40-12.00) 03/19/19 07:49 Nucleated RBC % 0.0 /100WBC 03/19/19 07:49 Nucleated RBCs # 0 K/uL 03/19/19 07:49 Sodium 141 mmol/L (136-145) 03/19/19 07:49 Potassium 4.5 mmol/L (3.5-5.1) 03/19/19 07:49 Chloride 103 mmol/L (98-107) 03/19/19 07:49 Carbon Dioxide 30.0 mmol/L (21.0-32.0) 03/19/19 07:49 BUN 8 mg/dL (7.0-18.0) 03/19/19 07:49 Creatinine 1.0 mg/dL (0.6-1.0) 03/19/19 07:49 Est Cr Clr Drug Dosing 69.34 mL/min 03/19/19 07:49 Estimated GFR (MDRD) > 60.0 ml/min 03/19/19 07:49 Glucose 93 mg/dL (74-106) 03/19/19 07:49 Calcium 9.2 mg/dL (8.5-10.1) 03/19/19 07:49 Urine HCG, Qual NEGATIVE (NEGATIVE) 03/19/19 07:42 - Allergies Allergies/Adverse Reactions: Allergies Allergy/AdvReac Type Severity Reaction Status Date / Time No Known Allergies Allergy Verified 08/30/17 13:19 - Blood Blood Available: No - Anesthesia Plan Pre-Op Medication Ordered: None - Acknowledgements Anesthesia Type Planned: General Anesthesia Pt an Appropriate Candidate for the Planned Anesthesia: Yes Alternatives and Risks of Anesthesia Discussed w Pt/Guardian: Yes Pt/Guardian Understands and Agrees with Anesthesia Plan: Yes PreAnesthesia Questionnaire HEENT History: Reports: None Cardiovascular History: Reports: None Respiratory History: Reports: None Gastrointestinal History: Reports: Colon Polyp Genitourinary History: Reports: None BUS ESCORT History: Reports: Musculoskeletal History: Reports: None Neurological History: Reports: None Psychiatric History: Reports: Anxiety, Depression Endocrine/Metabolic History: Reports: None Hematologic History: Reports: None Immunologic History: Reports: None Oncologic (Cancer) History: Reports: None Dermatologic History: Reports: None - Past Surgical History Head Surgeries/Procedures: Reports: None HEENT Surgical History: Reports: Oral Surgery Other HEENT Surgeries/Procedures: wisdom teeth Cardiovascular Surgical History: Reports: None Respiratory Surgical History: Reports: None GI Surgical History: Reports: Colonoscopy Female Surgical History: Reports: Breast Implant, D&C, Endometrial Ablation Other Female Surgeries/Procedures: hysteroscopy with endometrial ablation, diagnostic laparoscopy, caudal blocks x3 for lower abdominal pain Endocrine Surgical History: Reports: None Neurological Surgical History: Reports: None Musculoskeletal Surgical History: Reports: None Oncologic Surgical History: Reports: None Dermatological Surgical History: Reports: None - SUBSTANCE USE Smoking Status *Q: Never Smoker Recreational Drug Use History: No - HOME MEDS Home Medications: Home Meds Escitalopram Oxalate [Lexapro] 20 mg PO DAILY 12/27/16 [History] ALPRAZolam [Xanax] 0.5 mg PO TID PRN 03/12/19 [History] Elagolix Sodium [Orilissa] 200 mg PO BID 03/12/19 [History] Ibuprofen 3 tab PO ASDIRECTED PRN 03/12/19 [History] Phentermine HCl 30 mg PO DAILY 03/12/19 [History] Vitamin B Complex 1 tab PO DAILY 03/12/19 [History] - CURRENT (IN HOUSE) MEDS Current Meds: Current Medications Lactated Ringer's (Ringers, Lactated) 1,000 mls @ 125 mls/hr IV ASDIRECTED AUGUSTO Last Admin: 03/19/19 08:33 Dose: 125 mls/hr Sodium Chloride (Saline Flush) 10 ml FLUSH ASDIRECTED PRN PRN Reason: Keep Vein Open Sodium Chloride (Saline Flush) 2.5 ml FLUSH ASDIRECTED PRN PRN Reason: Keep Vein Open Sodium Chloride (Normal Saline) 10 ml IV ASDIRECTED PRN PRN Reason: IV Use Discontinued Medications Bupivacaine HCl (Sensorcaine-Mpf 0.25%) Confirm Administered Dose 20 ml .ROUTE .STK-MED ONE Stop: 03/19/19 07:34 Fluorescein Sodium (Ak-Fluor) Confirm Administered Dose 5 ml .ROUTE .STK-MED ONE Stop: 03/19/19 07:46 Cefazolin Sodium/Dextrose 1 gm (/ Premix) 50 mls @ 100 mls/hr IV ONETIME ONE Stop: 03/19/19 05:29 Methylene Blue (Provayblue) Confirm Administered Dose 50 mg .ROUTE .STK-MED ONE Stop: 03/19/19 07:34 Scopolamine (Transderm-Scop) Confirm Administered Dose 1.5 mg .ROUTE .STK-MED ONE Stop: 03/19/19 08:28 Last Admin: 03/19/19 08:33 Dose: 1.5 mg
[2019-03-19] MEDS ORDERED: Scopolamine 1.5 MG Transdermal Patch TRDERM PRN (08:44)
[2019-03-19] MEDS ORDERED: Ondansetron 4 MG/2 ML SDV ONE (09:24)
[2019-03-19] MEDS ORDERED: fentaNYL 250 MCG/5 ML SDV ONE (09:24)
[2019-03-19] MEDS ORDERED: Propofol 200 MG/20 ML SDV ONE (09:24)
[2019-03-19] MEDS ORDERED: Midazolam 1 MG/ML 2 ML SDV ONE (09:24)
[2019-03-19] MEDS ORDERED: Dexamethasone 4 MG/ML 5 ML MDV ONE (09:24)
[2019-03-19] MEDS ORDERED: Rocuronium 100 MG/10 ML Syringe ONE (09:24)
[2019-03-19] MEDS ORDERED: Desflurane 240 ML Bottle ONE (09:29)
[2019-03-19] MEDS ORDERED: Glycopyrrolate 0.2 MG/ML SDV ONE ×3 (09:39→10:50)
[2019-03-19] MEDS ORDERED: ceFAZolin 1 GM Vial ONE (09:53)
[2019-03-19] MEDS ORDERED: Furosemide 40 MG/4 ML VIAL ONE (09:53)
[2019-03-19] MEDS ORDERED: Sodium Chloride 0.9% 20 ML ONE ×2 (09:53→09:57)
[2019-03-19] MEDS ORDERED: ePHEDrine 50 MG/ML SDV ONE (09:57)
[2019-03-19] MEDS ORDERED: Neostigmine Methylsulfate 1 MG/ML 5 ML Syringe ONE (10:49)
[2019-03-19] MEDS ORDERED: Atropine 0.1 MG/ML 10 ML Syringe IVPUSH PRN ×2 (10:59)
[2019-03-19] MEDS ORDERED: Albuterol 0.083% 2.5 MG/3 ML Neb Soln NEB PRN (10:59)
[2019-03-19] MEDS ORDERED: EPINEPHrine 1:10,000 1 MG/10 ML Syringe IVPUSH PRN (10:59)
[2019-03-19] MEDS ORDERED: 50% Dextrose in Water 50 ML Syringe IVPUSH PRN (10:59)
[2019-03-19] MEDS ORDERED: Naloxone 0.4 MG/ML Syringe IVPUSH PRN (10:59)
[2019-03-19] MEDS ORDERED: Aluminum Hydroxide/Magnesium Hydroxide/Simethicone Susp 30 ML Cup PO PRN (11:24)
[2019-03-19] MEDS ORDERED: Promethazine 25 MG/ML SDV IM PRN (11:24)
[2019-03-19] MEDS ORDERED: Acetaminophen/oxyCODONE 325-5 MG Tab PO PRN (11:24)
[2019-03-19] MEDS ORDERED: Ketorolac 30 MG/ML SDV IVPUSH ONE (11:24)
[2019-03-19] MEDS ORDERED: Ondansetron 4 MG/2 ML SDV IVPUSH PRN (11:24)
[2019-03-19] MEDS ORDERED: Morphine 4 MG/ML Syringe IVPUSH PRN (11:24)
[2019-03-19] MEDS ORDERED: Bisacodyl 5 MG Tab PO PRN (11:24)
--- NOTE | 2019-03-19 11:39 | PCM.OPNOTE ---
- General Post-Op/Procedure Note Date of Surgery/Procedure: 03/19/19 Operative Procedure(s): LAVH/RSO/left salpingectomy/cystoscopy Findings: RIght peritoneal window, consistent with endometriosis, normal appearing left ovary, bilateral patent ureters Pre Op Diagnosis: Endometriosis. Pelvic pain Post-Op Diagnosis: Same Anesthesia Technique: General ET Tube Primary Surgeon: Lindsay Bruno Sports Medicine Coordinator: Olive Adkins (1st) Sports Medicine Coordinator: Rossy Cardozo (2nd) Reason Sports Medicine Coordinator Was Necessary: exposure for laparoscopy, 2nd assist for vaginal exposure Pathology: uterus, cervix, bilateral tubes, right ovary Fluid Replacement, Intraop: 2,000 EBL in mLs: 200 Complications: none known Condition: Good Free Text/Narrative:: Dictation [id number]
[2019-03-19] MEDS: fentaNYL 100 MCG/2 ML SDV IVPUSH PRN ×3 (11:46→12:00)
[2019-03-19] MEDS: Belladonna Alkaloids/Opium 16.2-30 MG Supp RECTAL PRN ×3 (11:51→23:46)
--- NOTE | 2019-03-19 12:36 | PCM.POSTAN ---
POST ANESTHESIA ASSESSMENT - MENTAL STATUS Mental Status: Alert, Oriented - VITAL SIGNS Vital Signs: Last Vital Signs Temp 36.6 C 03/19/19 11:26 Pulse 70 03/19/19 12:06 Resp 12 03/19/19 12:06 BP 119/70 03/19/19 12:06 Pulse Ox 93 L 03/19/19 12:06 - RESPIRATORY Respiratory Status: Respiratory Rate WNL, Airway Patent, O2 Saturation Stable - CARDIOVASCULAR CV Status: Pulse Rate WNL, Blood Pressure Stable - GASTROINTESTINAL GI Status: No Symptoms - PAIN Pain Score: 4 - POST OP HYDRATION Hydration Status: Adequate & Stable - OBSERVATIONS Free Text/Narrative:: no anesthesia problems
[2019-03-19] MEDS: Acetaminophen/oxyCODONE 325-5 MG Tab PO PRN ×2 (12:39→19:43)
--- NOTE | 2019-03-19 13:20 | OR ---
SURGEON: Lindsay Bruno M.D. DATE OF PROCEDURE: 03/19/2019 PREOPERATIVE DIAGNOSES: 1. Endometriosis. 2. Pelvic, perineal pain. POSTOPERATIVE DIAGNOSES: 1. Endometriosis. 2. Pelvic, perineal pain. PROCEDURES: Laparoscopic-assisted vaginal hysterectomy with right salpingo-oophorectomy, left salpingectomy, cystoscopy. PRIMARY SURGEON: Lindsay Bruno MD. ENGINE OILER: health education assistant: Lauren Adkins. Second assist: Rossy Cardozo MD. ANESTHESIA: General endotracheal anesthesia. ESTIMATED BLOOD LOSS: 300 mL. FLUIDS: 2000 mL of crystalloid. COMPLICATIONS: None known. FINDINGS: Inflamed pelvis with a right peritoneal window near the uterosacral ligament consistent with endometriosis. Normal-appearing left ovary. Bilateral patent ureters at the end of the procedure with cystoscopy. DISPOSITION: The patient to PACU, stable condition. Specimen to pathology. PROCEDURE DETAILS: Karon is a 38-year-old, G2, P2, who has had ongoing difficulties with pelvic pain. Laparoscopically was evaluated a couple of years ago and was found to have a right peritoneal window. In the interval, she has gone on to be treated with Lupron and then Orilissa which has controlled her pain quite nicely. However, at this point, she is ready to proceed with definitive intervention. Risks of procedure have been discussed. Proper consent obtained. The patient prefers to have her both right tube and ovary removed as the majority of pain is right-sided. She would like to have her left ovary to be maintained unless appears to be affected by the endometriosis. The patient signed proper consents, was taken to the operating room where she underwent general endotracheal anesthesia, was then placed in modified dorsal lithotomy position, was prepped and draped in the usual sterile fashion. SCDs to lower extremities. Mao to gravity. Received Ancef prophylactically. Time- out was performed. The weighted speculum was introduced in the vagina. Anterior lip of the cervix was grasped with an Allis, then single-toothed tenaculum to help stabilize the cervix. The 3 mm HUMI uterine manipulator was not easily introduced, therefore, the cervix was gently dilated and was able to introduce the balloon. All the instruments removed from vagina except for the uterine manipulator. Gloves changed. Attention turned abdominally. Infraumbilically was able to prep the region with 0.25%Marcaine, please see nurse's notes for total amount of local dispensed during the procedure. A 5 mm infraumbilical sagittal midline incision was created, dissected sharply down through fascia with hemostats. The anterior abdominal wall was tented upward and a Veress needle was introduced. Saline hanging drop test was performed. Pneumoperitoneum was achieved. The Veress needle was removed. Laparoscopic trocar was introduced with laparoscope and was able to visualize peritoneal contents. A right lower quadrant, left lower quadrant trocar was now introduced after prepping these regions with 0.25% Marcaine and creating 5 mm skin incisions. After the ports were satisfactorily replaced, the uterus, ovaries, and fallopian tubes were inspected. They were mobile. There was still a persistent right peritoneal window noted along the right pelvic sidewall. The ureters were seen peristalsing nicely away from the operative field. The left fallopian tube was able to be grasped, and using LigaSure, salpingectomy was performed to the level of the cornua. Now, the upper portion of the broad ligament was able to be secured with LigaSure, cauterized, and transected. The medial leaf of the broad ligament was able to be secured, cauterized, and transected. The base of the broad ligament was able to be secured, cauterized, and transected with the round ligament. The upper portion of the cardinal ligament was able to be secured, cauterized, transected. Anteriorly, the peritoneum was dissected from the underlying cervix and lower uterine segment. The bladder flap was created nicely and mobilized nicely away from the uterus. Attention was now turned to the patient's right side, was able to secure the infundibulopelvic ligament with LigaSure, cauterize, transect, followed by the upper portion of the broad ligament down to the level of the round ligament, cauterizing and then transecting the round ligament to the upper portion of the cardinal ligament, to the base of cardinal ligament, to the level of the uterosacral ligament. At this point, the laparoscopic portion of the case was then completed for the time being and all laparoscopic instruments were removed. Pneumoperitoneum was released. Attention was turned vaginally. Knees and hips were now flexed. The weighted speculum was introduced in the vagina. The cervix was grasped with Gucci clamp. Anterior and sidewall Deavers were replaced. The cervix circumscribed with Bovie cautery. Anterior and posteriorly, the overlying mucosa was dissected sharply and bluntly away from underlying peritoneum. Anterior peritoneum was gently entered. Anterior Anil was used to mobilize the bladder away from the operative field. Posteriorly, the peritoneum was entered sharply and then longer weighted speculum replaced the shorter in order to expose the posterior aspect of the uterus. Uterosacral ligament on either side was secured with Alicia clamp, transected, and suture ligated with 2-0 Vicryl. Remainder of pedicle on either side was able to be secured, transected, and suture ligated. The uterus, fallopian tubes, and right ovary now delivered and these were handed off to orthotics technician to be sent to pathology. On either side, areas of bleeding along the uterosacral ligament pedicles were able to be secured with Alicia clamp, transected, and suture ligated with 2-0 Vicryl. The posterior peritoneum was wanting to ooze, therefore, this was closed utilizing the uterosacral ligament on either side, carrying a suture to this, reefing the posterior peritoneum, and then suturing through the right uterosacral ligament, starting with the left. This was tied down. The uterosacral ligament on either side was plicated to the vaginal apex. The upper pedicles were then inspected and found to be hemostatic. The cuff was now closed using 0 Vicryl in continuous running locked fashion. All sutures trimmed. Bladder was released. Mao balloon was desufflated and the Mao catheter was removed. Cystoscopy was now performed using normal saline as distention media. The dome of the bladder was able to be visualized followed by the trigone. The left ureteral orifice was seen followed by the right ureteral orifice and fluorescein-dyed urine was seen streaming from both of them helping to ensure ureteral patency. The bladder was now drained. The cystoscope was removed. Mao catheter was replaced. The vaginal cuff was inspected, found to be hemostatic. Gloves changed and returned attention abdominally. Pneumoperitoneum was once again achieved. The laparoscope was reintroduced and the pedicles were inspected. The pedicles were found to be hemostatic. The pelvis was copiously irrigated, suction dried. It was noted the patient does react every time the pelvis was irrigated. From an Anesthesia standpoint, blood pressure had increased and seemed to be having discomfort with it. The region of the peritoneal window was now cauterized with LigaSure in case there were any other portions with remaining need for ablation. The pedicles were once again inspected. Relief pressure decreased to 5 mm. Hemostasis appeared evident. Therefore, the trocars were now removed under direct visualization. The laparoscope and infraumbilical trocar removed once the pneumoperitoneum was released as much as possible. The skin edges were reapproximated using 3-0 Monocryl in subcuticular fashion. The cuff inspected, found to be hemostatic. The patient had tolerated the procedure well overall. She will go to PACU in stable condition, specimen to pathology. Sponge, instrument, and needle count was correct x3. BALJIT / NORTH /[id number]
--- NOTE | 2019-03-19 16:52 | PCM.SN ---
- Free Text/Narrative Note: Patient is resting. Denies nausea. Has cramping. Has walked in the halls. Explained intraoperative findings/procedure. Continue postoperative cares. May remove rosales catheter this evening.
[2019-03-19] MEDS: Ketorolac 30 MG/ML SDV IVPUSH PRN (16:58)
[2019-03-19] MEDS: Docusate Sodium 100 MG Cap PO SCH (21:55)
[2019-03-20] MEDS: Ketorolac 30 MG/ML SDV IVPUSH PRN (03:50)
[2019-03-20 06:42] LABS: BLOOD UREA NITROGEN,BUN 4 mg/dL (7.0-18.0); CARBON DIOXIDE,CO2 30.1 mmol/L (21.0-32.0); CHLORIDE,CL 104 mmol/L (98-107); GLUCOSE RANDOM 102 mg/dL (74-106); POTASSIUM,K 4.3 mmol/L (3.5-5.1); SODIUM,NA 140 mmol/L (136-145)
--- NOTE | 2019-03-20 07:05 | PCM48HPAN ---
Post Anesthesia Note - EVALUATION WITHIN 48HRS OF ANESTHETIC Vital Signs in Normal Range: Yes Patient Participated in Evaluation: Yes Respiratory Function Stable: Yes Airway Patent: Yes Cardiovascular Function Stable: Yes Hydration Status Stable: Yes Pain Control Satisfactory: Yes Nausea and Vomiting Control Satisfactory: Yes Mental Status Recovered: Yes Vital Signs: Last Vital Signs Temp 36.6 C 03/20/19 04:00 Pulse 69 03/20/19 04:00 Resp 17 03/20/19 04:00 BP 118/60 03/20/19 04:00 Pulse Ox 95 03/20/19 04:00
[2019-03-20 07:30] VITALS: BP 114/66; PULSE 71
--- NOTE | 2019-03-20 08:47 | PCM.SURGPN ---
- General Info Date of Service: 03/20/19 POD#: 1 Functional Status: Reports: Pain Controlled, Tolerating Diet, Ambulating, Urinating - Review of Systems General: Reports: Fatigue. Denies: Fever, Weakness Pulmonary: Denies: Shortness of Breath Cardiovascular: Denies: Chest Pain, Palpitations, Lightheadedness Gastrointestinal: Reports: Abdominal Pain (controlled with pain meds). Denies: Nausea, Vomiting Genitourinary: Denies: Flank Pain Musculoskeletal: Reports: No Symptoms Skin: Reports: No Symptoms Neurological: Reports: No Symptoms Psychiatric: Reports: No Symptoms - Patient Data Vitals - Most Recent: Last Vital Signs Temp 36.5 C 03/20/19 07:30 Pulse 71 03/20/19 07:30 Resp 14 03/20/19 07:30 BP 114/66 03/20/19 07:30 Pulse Ox 97 03/20/19 07:30 Weight - Most Recent: 78.471 kg I&O - Last 24 Hours: Intake & Output 03/19/19 03/20/19 03/20/19 22:59 06:59 14:59 Intake Total 883 1737 Output Total 300 1600 Balance 583 137 Lab Results Last 24 Hrs: Laboratory Results - last 24 hr 03/19/19 03/20/19 03/20/19 Range/Units 07:49 06:01 06:01 WBC 6.60 (4.0-11.0) K/uL RBC 4.22 L (4.30-5.90) M/uL Hgb 12.3 (12.0-16.0) g/dL Hct 38.1 (36.0-46.0) % MCV 90.3 (80.0-98.0) fL MCH 29.1 (27.0-32.0) pg MCHC 32.3 (31.0-37.0) g/dL RDW Std Deviation 41.5 (28.0-62.0) fl RDW Coeff of Kelley 13 (11.0-15.0) % Plt Count 164 (150-400) K/uL MPV 10.00 (7.40-12.00) fL Neut % (Auto) 59.3 (48.0-80.0) % Lymph % (Auto) 31.4 (16.0-40.0) % Hettinger % (Auto) 8.2 (0.0-15.0) % Eos % (Auto) 0.8 (0.0-7.0) % Baso % (Auto) 0.3 (0.0-1.5) % Neut # (Auto) 3.9 (1.4-5.7) K/uL Lymph # (Auto) 2.1 (0.6-2.4) K/uL Hettinger # (Auto) 0.5 (0.0-0.8) K/uL Eos # (Auto) 0.1 (0.0-0.7) K/uL Baso # (Auto) 0.0 (0.0-0.1) K/uL Nucleated RBC % 0.0 /100WBC Nucleated RBCs # 0 K/uL Sodium 140 (136-145) mmol/L Potassium 4.3 (3.5-5.1) mmol/L Chloride 104 (98-107) mmol/L Carbon Dioxide 30.1 (21.0-32.0) mmol/L BUN 4 L (7.0-18.0) mg/dL Creatinine 0.8 (0.6-1.0) mg/dL Est Cr Clr Drug Dosing 86.67 mL/min Estimated GFR (MDRD) > 60.0 ml/min Glucose 102 (74-106) mg/dL Calcium 8.2 L (8.5-10.1) mg/dL Blood Type A POSITIVE Antibody Screen NEGATIVE Med Orders - Current: Current Medications Al Hydroxide/Mg Hydroxide (Mag-Al Plus) 30 ml PO Q4H PRN PRN Reason: Indigestion Belladonna Alkaloids/Opium (B & O Supprettes No. 15a) 1 supp RECTAL Q4H PRN PRN Reason: Pain Last Admin: 03/19/19 23:46 Dose: 1 supp Bisacodyl (Dulcolax) 10 mg PO DAILY PRN PRN Reason: Constipation Docusate Sodium (Colace) 100 mg PO BID [facility] Last Admin: 03/19/19 21:55 Dose: 100 mg Ketorolac Tromethamine (Toradol) 30 mg IVPUSH Q6H PRN PRN Reason: Pain (severe 7-10) Stop: 03/24/19 11:24 Last Admin: 03/20/19 03:50 Dose: 30 mg Morphine Sulfate (Morphine) 4 mg IVPUSH Q2H PRN PRN Reason: Pain (severe 7-10) Last Admin: 03/19/19 14:17 Dose: 4 mg Ondansetron HCl (Zofran) 4 mg IVPUSH Q6H PRN PRN Reason: Nausea/Vomiting Oxycodone/Acetaminophen (Percocet 325-5 Mg) 1 tab PO Q4H PRN PRN Reason: Pain (moderate 4-6) Last Admin: 03/20/19 00:07 Dose: 1 tab Oxycodone/Acetaminophen (Percocet 325-5 Mg) 2 tab PO Q4H PRN PRN Reason: Pain (moderate 4-6) Last Admin: 03/19/19 19:43 Dose: 2 tab Promethazine HCl (Phenergan) 25 mg IM Q6H PRN PRN Reason: Nausea/Vomiting Sodium Chloride (Saline Flush) 10 ml FLUSH ASDIRECTED PRN PRN Reason: Keep Vein Open Sodium Chloride (Saline Flush) 2.5 ml FLUSH ASDIRECTED PRN PRN Reason: Keep Vein Open Sodium Chloride (Normal Saline) 10 ml IV ASDIRECTED PRN PRN Reason: IV Use Discontinued Medications Albuterol (Proventil Neb Soln) 2.5 mg NEB ONETIME PRN PRN Reason: Wheezing Atropine Sulfate (Atropine 0.1 Mg/Ml) 0.5 mg IVPUSH ASDIRECTED PRN PRN Reason: Hypo-perfusion Atropine Sulfate (Atropine 0.1 Mg/Ml) 1 mg IVPUSH ASDIRECTED PRN PRN Reason: Hypo-Perfusion Bupivacaine HCl (Sensorcaine-Mpf 0.25%) Confirm Administered Dose 20 ml .ROUTE .STK-MED ONE Stop: 03/19/19 07:34 Cefazolin Sodium (Ancef) Confirm Administered Dose 1 gm .ROUTE .STK-MED ONE Stop: 03/19/19 09:54 Desflurane (Suprane) Confirm Administered Dose 240 ml .ROUTE .STK-MED ONE Stop: 03/19/19 09:30 Dexamethasone (Dexamethasone) Confirm Administered Dose 20 mg .ROUTE .STK-MED ONE Stop: 03/19/19 09:25 Dextrose/Water (Dextrose 50% In Water) 50 ml IVPUSH ASDIRECTED PRN PRN Reason: Hypoglycemia Ephedrine Sulfate (Ephedrine Sulfate) Confirm Administered Dose 50 mg .ROUTE .STK-MED ONE Stop: 03/19/19 09:58 Epinephrine HCl (Epinephrine 1:10,000) 1 mg IVPUSH ASDIRECTED PRN PRN Reason: ACLS Guidelines Fentanyl (Sublimaze) Confirm Administered Dose 250 mcg .ROUTE .STK-MED ONE Stop: 03/19/19 09:25 Fentanyl (Sublimaze) 50 - 100 mcg IVPUSH Q5M PRN PRN Reason: Pain Last Admin: 03/19/19 12:00 Dose: 50 mcg Fluorescein Sodium (Ak-Fluor) Confirm Administered Dose 5 ml .ROUTE .STK-MED ONE Stop: 03/19/19 07:46 Furosemide (Lasix) Confirm Administered Dose 40 mg .ROUTE .STK-MED ONE Stop: 03/19/19 09:54 Glycopyrrolate (Robinul) Confirm Administered Dose 0.2 mg .ROUTE .STK-MED ONE Stop: 03/19/19 09:40 Glycopyrrolate (Robinul) Confirm Administered Dose 0.2 mg .ROUTE .STK-MED ONE Stop: 03/19/19 10:50 Glycopyrrolate (Robinul) Confirm Administered Dose 0.4 mg .ROUTE .STK-MED ONE Stop: 03/19/19 10:51 Cefazolin Sodium/Dextrose 1 gm (/ Premix) 50 mls @ 100 mls/hr IV ONETIME ONE Stop: 03/19/19 05:29 Last Admin: 03/19/19 12:38 Dose: Not Given Lactated Ringer's (Ringers, Lactated) 1,000 mls @ 125 mls/hr IV ASDIRECTED AUGUSTO Last Admin: 03/19/19 18:06 Dose: 125 mls/hr Sodium Chloride (Normal Saline) Confirm Administered Dose 20 mls @ as directed .ROUTE .STK-MED ONE Stop: 03/19/19 09:54 Sodium Chloride (Normal Saline) Confirm Administered Dose 20 mls @ as directed .ROUTE .STK-MED ONE Stop: 03/19/19 09:58 Ketorolac Tromethamine (Toradol) 30 mg IVPUSH ONETIME ONE Stop: 03/19/19 11:25 Last Admin: 03/19/19 12:38 Dose: Not Given Lidocaine HCl (Xylocaine-Mpf 1%) Confirm Administered Dose 5 ml .ROUTE .STK-MED ONE Stop: 03/19/19 09:25 Methylene Blue (Provayblue) Confirm Administered Dose 50 mg .ROUTE .STK-MED ONE Stop: 03/19/19 07:34 Midazolam HCl (Versed 1 Mg/Ml) Confirm Administered Dose 2 mg .ROUTE .STK-MED ONE Stop: 03/19/19 09:25 Naloxone HCl (Narcan) 0.1 mg IVPUSH ASDIRECTED PRN PRN Reason: Respiratory Depression Neostigmine Methylsulfate (Neostigmine) Confirm Administered Dose 5 mg .ROUTE .STK-MED ONE Stop: 03/19/19 10:50 Ondansetron HCl (Zofran) Confirm Administered Dose 4 mg .ROUTE .STK-MED ONE Stop: 03/19/19 09:25 Propofol (Diprivan 20 Ml) Confirm Administered Dose 200 mg .ROUTE .STK-MED ONE Stop: 03/19/19 09:25 Rocuronium [place] (Zemuron) Confirm Administered Dose 100 mg .ROUTE .STK-MED ONE Stop: 03/19/19 09:25 Scopolamine (Transderm-Scop) Confirm Administered Dose 1.5 mg .ROUTE .STK-MED ONE Stop: 03/19/19 08:28 Last Admin: 03/19/19 08:33 Dose: 1.5 mg Scopolamine (Transderm-Scop) 1.5 mg TRDERM Q72H PRN PRN Reason: Nausea - Exam Wound/Incisions: Healing Well, Dressing Dry and Intact General: Alert, Oriented Neck: Supple Lungs: Normal Respiratory Effort Cardiovascular: Regular Rate, Regular Rhythm GI/Abdominal Exam: Normal Bowel Sounds, Soft, Tender (near incisions, appropriate). No: Guarding, Rigid, Rebound Extremities: Normal Capillary Refill, Pedal Edema (trace). No: Konstantin's Sign Skin: Warm, Dry, Intact Neurological: No New Focal Deficit Psy/Mental Status: Alert, Normal Affect, Normal Mood - Problem List & Annotations (1) Endometriosis SNOMED Code(s): 510368590 Code(s): N80.9 - ENDOMETRIOSIS, UNSPECIFIED Status: Acute Current Visit: Yes - Problem List Review Problem List Initiated/Reviewed/Updated: Yes - My Orders Last 24 Hours: Active Orders 24 hr Category Date Time Status Patient Status [ADT] Routine ADT 03/19/19 11:24 Active Antiembolic Devices [RC] PER UNIT ROUTINE Care 03/19/19 11:25 Active Blood Glucose Check, Bedside [RC] PRN Care 03/19/19 11:00 Active May Shower [RC] ASDIRECTED Care 03/19/19 11:24 Active Notify Provider Intake and Out [RC] ASDIRECTED Care 03/19/19 11:24 Active Notify Provider Vital Signs [RC] ASDIRECTED Care 03/19/19 11:00 Active Notify Provider Vital Signs [RC] ASDIRECTED Care 03/19/19 11:24 Active Oxygen Therapy [RC] ASDIRECTED Care 03/19/19 11:24 Active Oxygen Therapy [RC] PRN Care 03/19/19 11:00 Active RT Aerosol Therapy [RC] ASDIRECTED Care 03/19/19 11:00 Active RT Aerosol Therapy [RC] ASDIRECTED Care 03/19/19 11:00 Active RT Aerosol Therapy [RC] ASDIRECTED Care 03/19/19 11:00 Active RT Incentive Spirometry [RC] Q2HWA Care 03/19/19 11:24 Active Ready for Discharge [RC] PER UNIT ROUTINE Care 03/20/19 08:43 Ordered Up With Assistance [RC] PER UNIT ROUTINE Care 03/19/19 11:24 Active Up ad Hailey [RC] PER UNIT ROUTINE Care 03/19/19 11:24 Active Urinary Catheter Removal [RC] Per Unit Routine Care 03/19/19 11:24 Active Vital Signs [RC] PER UNIT ROUTINE Care 03/19/19 11:24 Active Regular Diet [DIET] Diet 03/19/19 Lunch Active Acetaminophen/oxyCODONE [Percocet 325-5 MG] Med 03/19/19 11:24 Active 1 tab PO Q4H PRN Acetaminophen/oxyCODONE [Percocet 325-5 MG] Med 03/19/19 11:24 Active 2 tab PO Q4H PRN Alum Hydrox/Mag Hydrox/Simeth [Mag-Al Plus] Med 03/19/19 11:24 Active 30 ml PO Q4H PRN Belladonna/Opium [B & O Supprettes No. 15A] Med 03/19/19 11:24 Active 1 supp RECTAL Q4H PRN Bisacodyl [Dulcolax] Med 03/19/19 11:24 Active 10 mg PO DAILY PRN Docusate Sodium [Colace] Med 03/19/19 21:00 Active 100 mg PO BID Ketorolac [Toradol] Med 03/19/19 11:24 Active 30 mg IVPUSH Q6H PRN Morphine Med 03/19/19 11:24 Active 4 mg IVPUSH Q2H PRN Ondansetron [Zofran] Med 03/19/19 11:24 Active 4 mg IVPUSH Q6H PRN Promethazine [Phenergan] Med 03/19/19 11:24 Active 25 mg IM Q6H PRN Ice Therapy [OM.PC] Per Unit Routine Oth 03/19/19 11:25 Ordered Peripheral IV Discontinue [OM.PC] Routine Oth 03/19/19 11:24 Ordered Sequential Compression Device [OM.PC] Per Unit Routine Oth 03/19/19 11:24 Ordered Resuscitation Status Routine Resus Stat 03/19/19 11:24 Ordered Medication Orders Al Hydroxide/Mg Hydroxide (Mag-Al Plus) 30 ml PO Q4H PRN PRN Reason: Indigestion Belladonna Alkaloids/Opium (B & O Supprettes No. 15a) 1 supp RECTAL Q4H PRN PRN Reason: Pain Last Admin: 03/19/19 23:46 Dose: 1 supp Admin: 03/19/19 16:53 Dose: 1 supp Admin: 03/19/19 11:51 Dose: 1 supp Bisacodyl (Dulcolax) 10 mg PO DAILY PRN PRN Reason: Constipation Docusate Sodium (Colace) 100 mg PO BID [facility] Last Admin: 03/19/19 21:55 Dose: 100 mg Ketorolac Tromethamine (Toradol) 30 mg IVPUSH Q6H PRN PRN Reason: Pain (severe 7-10) Stop: 03/24/19 11:24 Last Admin: 03/20/19 03:50 Dose: 30 mg Admin: 03/19/19 16:58 Dose: 30 mg Morphine Sulfate (Morphine) 4 mg IVPUSH Q2H PRN PRN Reason: Pain (severe 7-10) Last Admin: 03/19/19 14:17 Dose: 4 mg Ondansetron HCl (Zofran) 4 mg IVPUSH Q6H PRN PRN Reason: Nausea/Vomiting Oxycodone/Acetaminophen (Percocet 325-5 Mg) 1 tab PO Q4H PRN PRN Reason: Pain (moderate 4-6) Last Admin: 03/20/19 00:07 Dose: 1 tab Oxycodone/Acetaminophen (Percocet 325-5 Mg) 2 tab PO Q4H PRN PRN Reason: Pain (moderate 4-6) Last Admin: 03/19/19 19:43 Dose: 2 tab Admin: 03/19/19 12:39 Dose: 2 tab Promethazine HCl (Phenergan) 25 mg IM Q6H PRN PRN Reason: Nausea/Vomiting Sodium Chloride (Saline Flush) 10 ml FLUSH ASDIRECTED PRN PRN Reason: Keep Vein Open Sodium Chloride (Saline Flush) 2.5 ml FLUSH ASDIRECTED PRN PRN Reason: Keep Vein Open Sodium Chloride (Normal Saline) 10 ml IV ASDIRECTED PRN PRN Reason: IV Use - Assessment Assessment (Free Text/Narrative):: POD 1 status post LAVH/RSO/left salpingectomy, cystoscopy - Plan Plan (Free Text/Narrative):: Doing well overall, ambulated halls, voiding, tolerating small amount of regular diet and pain is controlled with oral pain meds. VS are reassuring as well as postop labs. Discharge to home. Discharge instructions reviewed. Follow up at [facility] 2 and 6 weeks.
[2019-03-20] MEDS: Docusate Sodium 100 MG Cap PO SCH (08:48)
[2019-03-20] MEDS: Acetaminophen/oxyCODONE 325-5 MG Tab PO PRN (08:49)
== END 2019-03-20 09:20 | disposition home or self-care (01) ==
LOC: MW.SDS 07:35 → MW.MS 11:46 → MW.SDS 03-20 09:20
PROVIDERS: ATTEND Obstetrics & Gynecology
DX: N80.0 Endometriosis of uterus (principal); F41.9 Anxiety disorder, unspecified; Z79.899 Other long term (current) drug therapy
CPT/HCPCS: 36415; 58552; 80048; 81025; 85025; 85027; 86850; 86900; 86901; 88307; A9270; J0690; J1100; J1885; J1940; J2001; J2250; J2270; J2405; J2704; J3010; J3490; J7120